=== PATIENT | female | born 1975 | race Caucasian/White ===

== ENCOUNTER 2017-09-01 11:07 | Inpatient (IN) ==
--- NOTE | 2017-09-01 08:59 | Discharge Summary ---
<Laura Dennis - Last Filed: 09/01/17 08:57> Orders not resulted at time of discharge: Pending orders 09/01/17 07:43 XR knee LT limited 1-2V [XR] Routine Hemoglobin and Hematocrit [HEME] Routine Date of Encounter: 09/01/17 - Discharge Diagnosis (1) Arthritis of knee, right Priority: Primary Status: Acute (2) Status post total knee replacement, right Priority: Primary Status: Acute (3) Tobacco use Priority: Secondary Status: Chronic (4) Obesity Priority: Secondary Status: Chronic Qualifiers: Obesity type: due to excess calories Obesity classification: unspecified obesity classification Serious obesity comorbidity presence: without serious comorbidity Qualified Code(s): E66.09 - Other obesity due to excess calories (5) Gout Priority: Secondary Status: Chronic Qualifiers: Gout site: unspecified site Gout etiology: unspecified cause Chronicity: unspecified Qualified Code(s): M10.9 - Gout, unspecified (6) HTN (hypertension) Priority: Secondary Status: Chronic Qualifiers: Hypertension type: essential hypertension Qualified Code(s): I10 - Essential (primary) hypertension (7) DMII (diabetes mellitus, type 2) Priority: Secondary Status: Chronic Qualifiers: Diabetes mellitus visual merchandising coordinator insulin use: unspecified visual merchandising coordinator insulin use status Diabetes mellitus complication status: with unspecified complications Qualified Code(s): E11.8 - Type 2 diabetes mellitus with unspecified complications (8) Seizure Priority: Secondary Status: Chronic - Hospital Course Hospital course: Ms. Santos is a 41 year old female - Time Spent with Patient Total time spent providing and/or coordinating discharge services: - Discharge Medications Home Medications: Allopurinol [Zyloprim] 300 mg PO DAILY 12/20/16 [History] BuPROPion SR (12 HR) [Wellbutrin SR] 150 mg PO DAILY 12/20/16 [History] Calcium Carbonate/Vitamin D3 [Calcium 500-Vit D3 200 Caplet] 1 tab PO DAILY 11/28 [History] Calcium Citrate 950 mg PO DAILY 12/20/16 [History] Cyanocobalamin (Vitamin B-12) [Vitamin B12] 500 mcg PO DAILY 12/20/16 [History] Ergocalciferol (VITAMIN D2) [Vitamin D2] 50,000 unit PO MO 12/20/16 [History] Famotidine [Heartburn Prevention] 20 mg PO BID 12/20/16 [History] Gabapentin [Neurontin] 600 mg PO TID 12/20/16 [History] Loratadine [Allergy Relief] 10 mg PO DAILY 12/20/16 [History] Potassium Chloride [Klor-Con 10] 20 meq PO BID 12/20/16 [History] Pravastatin Sodium [Pravachol] 40 mg PO HS 12/20/16 [History] Vit#98/Ferrous Fum/FA [Kpn Tablet] 1 tab PO DAILY 12/20/16 [ History] SUMAtriptan succinate [Imitrex] 50 mg PO Q2H PRN 12/20/16 [History] Spironolactone [Aldactone] 50 mg PO DAILY 12/20/16 [History] Sucralfate [Carafate] 1 gm PO QIDAC 12/20/16 [History] Tizanidine HCl 4 mg PO TID 12/20/16 [History] Topiramate [Topamax] 50 mg PO HS 12/20/16 [History] Ursodiol 300 mg PO DAILY 12/20/16 [History] Aspirin Enteric Coated [Aspirin EC] 325 mg PO BID #20 tablet. 09/01/17 [Rx] Doxycycline Hyclate 100 mg PO BID 10 Days #20 tablet 09/01/17 [Rx] Ibuprofen [Motrin] 800 mg PO Q8HR PRN 09/01/17 [History] Losartan Potassium [Cozaar] 50 mg PO DAILY 09/01/17 [History] Magnesium Oxide [Magnesium] 500 mg PO DAILY 09/01/17 [History] Meloxicam [Mobic] 15 mg PO DAILY 09/01/17 [History] OxyCODONE Immed Rel [Roxicodone 5 MG] 5 mg PO Q6HR PRN 7 Days #28 tablet [Rx] Riboflavin [Vitamin B-2] 200 mg PO DAILY 09/01/17 [History] Sertraline [Zoloft] 50 mg PO DAILY 09/01/17 [History] clonazePAM [Klonopin] 0.5 mg PO TID 5 Days #15 tablet 09/01/17 [Rx] clonazePAM [Klonopin] 0.5 mg PO TID PRN 09/01/17 [History] Allergies/Adverse Reactions: 3 Allergy/AdvReac Type Severity Reaction Status Date / Time KAROLINE Inhibitors Allergy Unknown See Verified 09/01/17 12:39 Comments Primary care physician: PCP NONE - Patient Status Disposition: Home, Self-Care Condition: Good - Discharge Instructions Follow Up With: NONE,PCP [Primary Care Provider] - <Carmela Kramer - Last Filed: 09/01/17 15:37> Orders not resulted at time of discharge: Pending orders 09/01/17 07:43 XR knee RT limited 1-2V [XR] Routine 09/01/17 11:34 US anesthesia pain block [US] Routine 09/01/17 14:22 Surgical Pathology [PTH] Routine Date of Encounter: 09/01/17 - Hospital Course Hospital course: Ms. Santos is a 41 year old female - Time Spent with Patient Total time spent providing and/or coordinating discharge services: Primary care physician: MELY PATEL Labs on day of discharge: Labs from last 24 hours 09/01/17 09/01/17 09/01/17 15:09 11:34 11:22 Hgb 11.3 L Hct 32.7 L Sodium 139 Potassium 2.9 L POC Glucose 74 <Unruly Boothe - Last Filed: 09/02/17 05:54> Orders not resulted at time of discharge: Pending orders 09/01/17 07:43 XR knee LT limited 1-2V [XR] Routine Hemoglobin and Hematocrit [HEME] Routine 09/01/17 11:22 Potassium Stat Sodium Stat 09/01/17 11:34 US anesthesia pain block [US] Routine Date of Encounter: 09/02/17 Time of Encounter: 05:53 - Discharge Diagnosis (1) Obesity (BMI 30.0-34.9) Priority: Secondary Status: Chronic (2) Complete tear of medial collateral ligament of right knee Priority: Secondary Status: Chronic Comments: Status post reconstruction with allograft in the past Qualifiers: Encounter type: subsequent encounter Qualified Code(s): S83.411D - Sprain of medial collateral ligament of right knee, subsequent encounter (3) Arthritis of knee, right Priority: Primary Status: Chronic (4) Status post total knee replacement, right Priority: Primary Status: Acute (5) Tobacco use Priority: Secondary Status: Chronic (6) Gout Priority: Secondary Status: Chronic Qualifiers: Gout site: unspecified site Gout etiology: unspecified cause Chronicity: unspecified Qualified Code(s): M10.9 - Gout, unspecified (7) HTN (hypertension) Priority: Secondary Status: Chronic Qualifiers: Hypertension type: essential hypertension Qualified Code(s): I10 - Essential (primary) hypertension (8) DMII (diabetes mellitus, type 2) Priority: Secondary Status: Chronic Qualifiers: Diabetes mellitus halfway insulin use: unspecified visual merchandising coordinator insulin use status Diabetes mellitus complication status: with unspecified complications Qualified Code(s): E11.8 - Type 2 diabetes mellitus with unspecified complications (9) Seizure Priority: Secondary Status: Chronic (10) Acute blood loss anemia Priority: Primary Status: Acute - Hospital Course Hospital course: Ms. Santos is a 41 year old female Status post right total knee replacement.The patient had an uneventful postoperative course. They received antibiotics and physical therapy and were discharged in stable condition. There will follow-up in the office in 2 weeks. - Time Spent with Patient Total time spent providing and/or coordinating discharge services: Primary care physician: PCP NONE - Patient Status Functional capacity at discharge: uses cane/walker Overall status at discharge: patient is back to baseline
--- NOTE | 2017-09-01 11:37 | Anesthesia Evaluation PreOp ---
Date of Encounter: 09/01/17 Time of Encounter: 11:35 - Past History Planned Operation: Right Robotic total Knee Arthroplasty Cardiac History: HTN, Hyperlipidemia Pulmonary History: Smoker WAREHOUSE SUPERVISOR 3RD SHIFT History: Seizures (Last one 01/2017), Other (Depression, Migraines) Other Medical History: Diabetes Type II, Other (Gout) Anesthesia History: No Prior Anesthetic Complications, Past Anesthesia (D&C, hernia, Gatric bypass, R. knee arthroscopy) : No Test: Negative (08/26/2017) Alcohol Use: unknown Drug use: none Medications and Allergies Allopurinol [Zyloprim] 300 mg PO DAILY 12/20/16 [History] BuPROPion SR (12 HR) [Wellbutrin SR] 150 mg PO DAILY 12/20/16 [History] Calcium Carbonate/Vitamin D3 [Calcium 500-Vit D3 200 Caplet] 1 tab PO DAILY 11/28 [History] Calcium Citrate 950 mg PO DAILY 12/20/16 [History] Cyanocobalamin (Vitamin B-12) [Vitamin B12] 500 mcg PO DAILY 12/20/16 [History] Ergocalciferol (VITAMIN D2) [Vitamin D2] 50,000 unit PO MO 12/20/16 [History] Famotidine [Heartburn Prevention] 20 mg PO BID 12/20/16 [History] Gabapentin [Neurontin] 600 mg PO TID 12/20/16 [History] Loratadine [Allergy Relief] 10 mg PO DAILY 12/20/16 [History] Potassium Chloride [Klor-Con 10] 20 meq PO BID 12/20/16 [History] Pravastatin Sodium [Pravachol] 40 mg PO HS 12/20/16 [History] Vit#98/Ferrous Fum/FA [Kpn Tablet] 1 tab PO DAILY 12/20/16 [ History] SUMAtriptan succinate [Imitrex] 50 mg PO Q2H PRN 12/20/16 [History] Spironolactone [Aldactone] 50 mg PO DAILY 12/20/16 [History] Sucralfate [Carafate] 1 gm PO QIDAC 12/20/16 [History] Tizanidine HCl 4 mg PO TID 12/20/16 [History] Topiramate [Topamax] 50 mg PO HS 12/20/16 [History] Ursodiol 300 mg PO DAILY 12/20/16 [History] Aspirin Enteric Coated [Aspirin EC] 325 mg PO BID #20 tablet. 09/01/17 [Rx] Losartan Potassium [Cozaar] 50 mg PO DAILY 09/01/17 [History] OxyCODONE Immed Rel [Roxicodone 5 MG] 5 mg PO Q6HR PRN 7 Days #28 tablet [Rx] clonazePAM [Klonopin] 0.5 mg PO TID 5 Days #15 tablet 09/01/17 [Rx] clonazePAM [Klonopin] 0.5 mg PO TID PRN 09/01/17 [History] 3 Allergy/AdvReac Type Severity Reaction Status Date / Time KAROLINE Inhibitors Allergy Unknown See Verified 09/01/17 12:39 Comments - Meds/Allergy Pre-op Review Medications Reviewed: Yes Allergies Reviewed: Yes Beta Blockers on Current Med List: No Anesthesia Results - Labs 09/01/17 11:22 Laboratory Tests 08/26/17 08/26/17 08/26/17 16:08 16:08 16:08 WBC 9.5 Hgb 11.8 Hct 33.1 L MCV 90.7 Plt Count 402 H INR 1.0 Sodium 134 L Potassium 2.7 L Chloride 99 Carbon Dioxide 26 BUN 15 Creatinine 1.00 Serum , Qual 08/26/17 16:08 WBC Hgb Hct MCV Plt Count INR Sodium Potassium Chloride Carbon Dioxide BUN Creatinine Serum , Qual Negative Laboratory Tests 09/01/17 11:22 Potassium 2.9 L - Imaging EKG: report reviewed (SR) Anesthesia Exam O2 Sat Height 1.65 m Height 1.65 m Weight 93.894 kg Weight 93.894 kg O2 Sat by Pulse Oximetry 98 Vital Signs Temp Pulse Resp BP Pulse Ox 98.6 F 78 18 100/67 98 09/01/17 11:38 09/01/17 11:38 09/01/17 11:38 09/01/17 11:38 09/01/17 11:38 NPO (# of Hours): > 8 Hrs Pain Scale: 0 Pain Scale Used: Numeric (1 - 10) - HEENT Pupil (Motor): Pupils equal, EOMI Mallampati: II Teeth: Normal Oral Opening: Greater than 3 - WAREHOUSE SUPERVISOR 3RD SHIFT LOC: Oriented WAREHOUSE SUPERVISOR 3RD SHIFT Motor: Normal RUE, Normal LUE, Normal RLE, Normal LLE, Normal Face WAREHOUSE SUPERVISOR 3RD SHIFT Sensory: Normal: RUE, LUE, RLE, LLE, Face - Cardiac Rhythm: Regular Murmur: None JVD: No Carotid Bruit: No - Pulmonary Breath Sounds: bilateral Clear Respiratory Effort: Symmetrical Anesthesia Assess/Plan ASA Score: 3 Modified Ángel Scale for Level of Consciousness: Cooperative, oriented, and tranquil Anesthetic Plan: General (Will supplement with Potassium if Lab value of 2.7 decreases further.), Regional (Right Fem. Nerve Block) Autologous Blood: Yes Monitoring Plan: Standard Monitors Recovery Plan: PACU
[2017-09-01] MEDS ORDERED: CeFAZolin Syr 2,000MG/20 ML 2,000 MG/20 ML SYRINGE IVPB ONE (11:54)
[2017-09-01] MEDS ORDERED: Albuterol 2.5 MG/3 ML NEBULIZER IH ONE (11:54)
[2017-09-01] MEDS ORDERED: Ringers Solution, Lactated 1,000 ML IVC SCH (12:00)
--- NOTE | 2017-09-01 12:00 | History & Physical Report ---
Date of Encounter: 09/01/17 Time of Encounter: 12:00 24 Hour HP Update - Instructions Instructions: If the History and Physical is less than 30 days old and was completed prior to A.M. admission and or procedure and has NOT been updated on calendar day of procedure please complete this update prior to performing procedure. - Update Patient reports changes in Medical Condition: No Changes in examination, assessment, or condition: No Changes in Medication: No Preop tests/diagnostics Reviewed: Yes Surgery Remains Indicated: Yes Consent for Planned Operative Procedure(s) Verified: Yes - Pre-Operative Checklist Preoperative Checklist Indicated: No Prophylactic Antibiotic Ordered: Yes Is VTE Prophylaxis Indicated?: Yes
[2017-09-01] MEDS ORDERED: Bupivacaine/Clonidine Syringe 1 EACH SYRINGE ONE (12:01)
[2017-09-01] MEDS ORDERED: ROPIVACAINE HCL/PF 0.5% 30 ML VIAL ONE (12:01)
[2017-09-01] MEDS ORDERED: Ethanol\\Acetic Acid\\Na Ace\\Ben 1,000 ML IRRIG.SOLN IR ONE (12:49)
[2017-09-01 12:50] LABS: Potassium 2.9 mEq/L (3.5-5.1)
--- NOTE | 2017-09-01 13:01 | Anesthesia Procedures ---
Date of Encounter: 09/01/17 Time of Encounter: 12:58 Procedures: Anesthesia - Nerve Block Procedure Date: 09/01/17 Time: 12:59 Allergies/Adv Reactions: KAROLINE Inhibitors Allergy (Unknown, Verified 09/01/17 12:39) See Comments Pre-op Diagnosis: right total knee Surgical Procedure: right knee arthroscopy Checklist: Correct Patient Identifier, Correct procedure, History checked Correct side: Right Blood Thinner: No Monitor Applied: EKG, BP, Pulse Oximetry Supplemental Oxygen via Nasal Cannula (L/min): 2 Sedation: Versed (mg): 2 Sedation: Fentanyl (mcg): 100 Indication: Post Op Analgesia Pre-op Neuro Deficits: No Block Type: Femoral, Other (ipack) Catheter placed: No Sterile Technique: Yes Ultrasound used: Yes Anatomy identified: Yes Visual spread of Local: Yes Neuro Stimulation: No Blood on Needle Aspiration: No Smooth Injection of Local: Yes Pain with Injection of Local: No Prep: Chlorhexadine Needle: 22 x 50 mm Stimuplex (femoral), 21 x 100 mm Stimuplex (ipack) Local: 0.25% Bupivicaine w/Clonidine 20 mcg/cc (ipack 20cc), Ropivacaine (0.5% 30cc femoral) Volume (cc): 50 Number of Attempts: 1 Complications: None/effective block
[2017-09-01] MEDS ORDERED: *HR* Promethazine 25 MG/ML VIAL IVP PRN (13:07)
[2017-09-01] MEDS ORDERED: *HR* OxyCODONE Immed Rel 5 MG TABLET PO PRN (13:07)
[2017-09-01] MEDS ORDERED: *HR* HYDROmorphone 2 MG TABLET PO PRN (13:07)
[2017-09-01] MEDS ORDERED: *HR* Labetalol 20 MG/4 ML SYRINGE IVP PRN (13:07)
[2017-09-01] MEDS ORDERED: *HR* Midazolam HCl 2 MG/2 ML VIAL ONE (13:39)
[2017-09-01] MEDS ORDERED: Lidocaine -MPF 2% 2 ML VIAL ONE (13:39)
[2017-09-01] MEDS ORDERED: *HR* FentaNYL (PF) 100 MCG/2 ML VIAL ONE ×3 (13:39→16:10)
[2017-09-01] MEDS ORDERED: Ondansetron 4 MG/2 ML VIAL ONE (13:39)
[2017-09-01] MEDS ORDERED: *HR* PHENYLEPHRINE 1,000 MCG/10 ML SYRINGE IVP ONE (13:39)
[2017-09-01] MEDS ORDERED: *HR* Propofol 200 MG/20 ML VIAL IVP ONE (13:39)
[2017-09-01] MEDS ORDERED: EPHEDrine 50 MG/ML VIAL ONE (13:39)
[2017-09-01] MEDS ORDERED: Acetaminophen IV 1,000 MG/100 ML INFUS..BTL ONE (13:54)
--- NOTE | 2017-09-01 14:19 | Orthopedic Operative Note ---
Date of procedure: 09/01/17 Pre-op diagnosis: Right knee arthritis/ACL insufficiency Post-op diagnosis: same Procedure: Procedure: Right robotic-assisted Total knee replacement Estimated blood loss: 200 cc Hardware: Metal and polyethylene replacement. Maynard Femur: 4 Tibia: 4 TS insert: 13 Patella: 36 Exam Under anesthesia: 3 degree hyperextension 5 degree varus as calculated by the robot full flexion and no instability Procedural Notes: Grade 3 arthritic changes all 3 compartments. Operative procedure: The patient was brought to the operating room and placed on the operating room table. After general anesthesia was administered the operative knee was examined. Findings were noted in the exam under anesthesia. The operative extremity was prepped and draped in sterile surgical fashion. The patient received IV antibiotics prior to skin incision. A standard midline incision was made centered over the patella. The incision was made through the skin and subcutaneous tissue. A medial parapatellar tendon approach was performed. Care was taken to preserve tissue along the medial aspect of the patella. And to protect the patella tendon. The deep MCL was released off the medial tibia. The infra patella fat pad was excised. The patella was everted and cut was made at the level of the insertion of the quadriceps and patella tendon. The patella was sized the guide was seated and the lug holes are drilled. Knee was brought into flexion. Patient noted to have grade 3 arthritic changes all 3 compartments. Steinmann pins were placed in the tibia and the femur for the tibial and femoral arrays respectively. Checkpoints were also placed in the tibia and the femur for calculation purposes. The knee including the femur and the tibial registered. Osteophytes, ACL and PCL were excised at this point. Extension and flexion were assessed with a valgus stress components were adjusted on the computer to balance the knee. Femoral cuts were made first with robotic assistance, these included the anterior cut posterior cuts chamfer cuts. Tibial cut was then performed with robotic assistance as well. Bone fragments were removed, as well as the medial and lateral meniscus. The size 4 femoral guide was seated box cut was made lug holes are drilled. The size 4 tibial tray was seated and prepared with the fin cutter. Trial reduction with the 13 TS Marti revealed extension of 0 degree and 4 degree varus full flexion. No varus valgus instability. Trial reduction revealed excellent patella tracking. All trial components were removed all bony surfaces were irrigated. The Tibia was seated followed by the femur, The Marti size 13 was seated and secured patella. Patient had similar findings for motion and stability. The knee was closed by the PA. The knee was then irrigated out with 2 L of pulse irrigation. The extensor mechanism was closed with #2 FiberWire suture and #2 PDS suture. The subcutaneous tissue was then irrigated and closed deep with #1 PDS suture superficially with 0 PDS suture and skin was closed with zip tie The patient was then placed in a sterile dressing and a postoperative brace extubated and transferred to recovery room in stable condition. Anesthesia: GETA Surgeon: Unruly Boothe Was there an psych assistant present: Yes Nat Instructor: Carmela Kramer Estimated blood loss (cc): 200 Condition: stable Disposition: PACU
[2017-09-01] MEDS ORDERED: Ketorolac 30 MG/ML VIAL ONE (14:52)
[2017-09-01] MEDS ORDERED: *HR* Midazolam HCl 2 MG/2 ML VIAL IVP PRN (15:03)
[2017-09-01 15:24] LABS: Hematocrit 32.7 % (35.3-44.9); Hemoglobin 11.3 g/dL (11.5-15.4)
[2017-09-01] MEDS: *HR* Morphine 2 MG/ML SYRINGE IVP PRN ×3 (15:24→15:52)
[2017-09-01] MEDS: *HR* FentaNYL (PF) 100 MCG/2 ML VIAL IVP PRN ×2 (16:10→16:20)
[2017-09-01] MEDS ORDERED: MOM Conc 10 ML UD.LIQ PO PRN (16:50)
[2017-09-01] MEDS ORDERED: *HR* Dextrose 50 % in Water (Syg) 50 ML SYRINGE IVP PRN (16:50)
[2017-09-01] MEDS ORDERED: D5% in Water 1,000 ML IVC PRN (16:50)
[2017-09-01] MEDS ORDERED: Dextrose Gel 15 GM/37.5 ML TUBE PO PRN ×2 (16:50)
[2017-09-01] MEDS ORDERED: Sennosides 8.6 MG TABLET PO PRN (16:50)
[2017-09-01] MEDS ORDERED: SUMAtriptan succinate 50 MG TABLET PO PRN (16:50)
[2017-09-01] MEDS ORDERED: Temazepam 15 MG CAPSULE PO PRN (16:50)
[2017-09-01] MEDS ORDERED: Naloxone 0.4 MG/ML INJ IVP PRN (16:50)
[2017-09-01] MEDS: Insulin LISPRO 300 UNITS/3 ML VIAL SQ SCH ×2 (17:42→21:08)
[2017-09-01] MEDS: Ringers Solution, Lactated 1,000 ML IVC SCH (17:50)
[2017-09-01] MEDS: *HR* Enoxaparin 30 MG/0.3 ML SYRINGE SQ SCH (17:51)
[2017-09-01] MEDS: tiZANidine 4 MG TABLET PO SCH ×2 (17:52→21:04)
[2017-09-01] MEDS: traMADol 50 MG TABLET PO PRN (17:52)
[2017-09-01] MEDS: Gabapentin 300 MG CAPSULE PO SCH ×2 (17:52→21:07)
[2017-09-01] MEDS: Sucralfate 1 GM TABLET PO SCH ×2 (17:53→21:04)
[2017-09-01] MEDS ORDERED: *HR* Enoxaparin 30 MG/0.3 ML SYRINGE SQ SCH (18:00)
[2017-09-01 18:03] LABS: BUN/Creatinine Ratio 13 (6-26); Blood Urea Nitrogen 12 mg/dL (6-20); Calcium 8.6 mg/dL (8.6-10.3); Carbon Dioxide 29 mEq/L (23-29); Chloride 104 mEq/L (98-107); Glucose 89 mg/dL (70-105); Osmolality,Calculated 283 (280-300); Potassium 2.8 mEq/L (3.5-5.1); Sodium 137 mEq/L (136-145); eGFR For African Americans > 60 (> 60); eGFR For Non-African Americans > 60 (> 60)
--- NOTE | 2017-09-01 19:02 | Anesthesia Evaluation Post Op ---
Date of Encounter: 09/01/17 Time of Encounter: 18:59 - Vital Signs Vital Signs: Vital Signs/O2 Sat, Most Current Temp Pulse Resp BP Pulse Ox 97.5 F L 79 16 94/53 97 09/01/17 17:56 09/01/17 17:56 09/01/17 17:56 09/01/17 17:56 09/01/17 17:56 - Lungs Lungs: Clear Ascult./Percussion - Airway Airway: Non-obstructed - Cardiovascular Regular Rate - Mental Status Mental Status: Alert & Oriented, Answers Appropriately - Pain Pain Scale used: Numeric (1 - 10) (tolerable) - Nausea Vomiting Nausea Vomiting: Not Present - Hydration Hydration: Ice chips - Discharge PostOp Status: Transfer Patient to floor
[2017-09-01] MEDS: *HR* OxyCODONE Immed Rel 5 MG TABLET PO PRN ×2 (19:11→23:15)
[2017-09-01] MEDS: Topiramate 25 MG TABLET PO SCH (21:04)
[2017-09-01] MEDS: CeFAZolin Pre 2,000 MG/100 ML 2,000 MG/100 ML BAG IVPB SCH (21:04)
[2017-09-01] MEDS: Famotidine 20 MG TABLET PO SCH (21:04)
[2017-09-02 01:43] LABS: Hematocrit 27.4 % (35.3-44.9)
[2017-09-02 01:45] LABS: Hemoglobin 9.1 g/dL (11.5-15.4)
[2017-09-02 02:03] LABS: BUN/Creatinine Ratio 15 (6-26); Blood Urea Nitrogen 13 mg/dL (6-20); Calcium 8.1 mg/dL (8.6-10.3); Carbon Dioxide 25 mEq/L (23-29); Chloride 103 mEq/L (98-107); Glucose 104 mg/dL (70-105); Osmolality,Calculated 282 (280-300); Sodium 136 mEq/L (136-145); eGFR For African Americans > 60 (> 60); eGFR For Non-African Americans > 60 (> 60)
[2017-09-02] MEDS: traMADol 50 MG TABLET PO PRN ×2 (03:20→15:52)
[2017-09-02] MEDS: CeFAZolin Pre 2,000 MG/100 ML 2,000 MG/100 ML BAG IVPB SCH (04:34)
[2017-09-02] MEDS: *HR* Enoxaparin 30 MG/0.3 ML SYRINGE SQ SCH ×2 (04:34→17:21)
[2017-09-02] MEDS: Ringers Solution, Lactated 1,000 ML IVC SCH (04:35)
[2017-09-02] MEDS: Ondansetron 4 MG/2 ML VIAL IVP PRN ×2 (04:38→10:57)
[2017-09-02] MEDS: *HR* OxyCODONE Immed Rel 5 MG TABLET PO PRN ×5 (05:14→23:11)
--- NOTE | 2017-09-02 05:55 | Orthopedics Progress Note ---
Date of Encounter: 09/02/17 Time of Encounter: 05:55 - Assessment and Plan (1) Obesity (BMI 30.0-34.9) Current Visit: Yes Status: Chronic (2) Complete tear of medial collateral ligament of right knee Current Visit: Yes Status: Chronic Qualifiers: Encounter type: subsequent encounter Qualified Code(s): S83.411D - Sprain of medial collateral ligament of right knee, subsequent encounter (3) Arthritis of knee, right Current Visit: No Status: Chronic (4) Status post total knee replacement, right Current Visit: No Status: Acute (5) Tobacco use Current Visit: No Status: Chronic (6) Gout Current Visit: No Status: Chronic Qualifiers: Gout site: unspecified site Gout etiology: unspecified cause Chronicity: unspecified Qualified Code(s): M10.9 - Gout, unspecified (7) HTN (hypertension) Current Visit: No Status: Chronic Qualifiers: Hypertension type: essential hypertension Qualified Code(s): I10 - Essential (primary) hypertension (8) DMII (diabetes mellitus, type 2) Current Visit: No Status: Chronic Qualifiers: Diabetes mellitus terminal clerk insulin use: unspecified terminal clerk insulin use status Diabetes mellitus complication status: with unspecified complications Qualified Code(s): E11.8 - Type 2 diabetes mellitus with unspecified complications (9) Seizure Current Visit: No Status: Chronic (10) Acute blood loss anemia Current Visit: Yes Status: Acute Subjective Interval history: Patient was seen this morning doing well without complaints. Afebrile vital signs stable. Operative extremity: Neurovascularly intact Dressing clean dry and intact Calves nontender Assessment and plan: Continue with postoperative care Hemoglobin 9.1 discharged today Objective Vital signs: Vital Signs Temp Pulse Resp BP Pulse Ox 09/02/17 04:53 99.2 F 84 18 106/74 95 09/01/17 23:20 97.6 F 73 16 93/61 97 09/01/17 20:00 98.3 F 72 16 97/68 99 09/01/17 18:47 98.1 F 72 16 103/70 97 09/01/17 17:56 97.5 F L 79 16 94/53 97 09/01/17 17:39 97.5 F L 76 18 96/55 96 09/01/17 16:56 99 09/01/17 16:52 97.8 F 72 16 98/63 100 09/01/17 16:36 98 F 69 14 105/64 99 09/01/17 16:26 98 F 73 14 102/67 100 09/01/17 16:16 76 14 102/68 99 09/01/17 16:06 87 20 118/75 99 09/01/17 15:56 97.3 F L 86 20 113/80 99 09/01/17 15:46 84 16 117/54 100 09/01/17 15:36 87 16 119/91 98 09/01/17 15:26 97.3 F L 84 16 99/71 100 09/01/17 15:16 94 14 122/77 98 09/01/17 15:06 92 14 119/66 93 09/01/17 14:56 97.1 F L 88 14 97/85 96 09/01/17 12:59 77 108/67 99 09/01/17 12:40 79 18 93/64 98 09/01/17 11:56 18 98 09/01/17 11:38 98.6 F 78 18 100/67 98 Intake and Output 09/01/17 09/01/17 09/02/17 15:59 23:59 07:59 Intake Total 20 / 20 400 / 400 1480 / 1480 Output Total 200 / 200 600 / 600 800 / 800 Balance -180 / -180 -200 / -200 680 / 680 Intake: IV Fluids 20 / 20 100 / 100 1000 / 1000 Lactated Ringers 1,000 ML @ 75 1000 / 1000 mls/hr IVC .[id number] [facility] Rx#: [id number] Ancef Premix 2,000 MG/100 ML 2, 100 / 100 000 mg In 100 ml @ 200 mls/hr IVPB Q8H [facility] Rx#:[id number] Ancef Syringe 2,000 MG/20 ML 2, 20 / 20 000 mg In 20 ml @ 200 mls/hr IVPB [facility] Rx#:[id number] Oral 300 / 300 480 / 480 Output: Urine 600 / 600 800 / 800 Estimated Blood Loss 200 / 200 Other: Weight 93.894 kg Blood Glucose* 79 107 - Labs CBC & BMP: 09/02/17 01:23 09/02/17 01:23 Labs: Abnormal lab results Hgb 9.1 g/dL (11.5-15.4) L D 09/02/17 01:23 Hct 27.4 % (35.3-44.9) L 09/02/17 01:23 Potassium 3.0 mEq/L (3.5-5.1) L 09/02/17 01:23 Calcium 8.1 mg/dL (8.6-10.3) L 09/02/17 01:23 - VTE Documentation of Mechanical Device: Venous foot pump, device Consult Discharge Plan - Plan Referrals: NONE,PCP [Primary Care Provider] -
[2017-09-02] MEDS: Insulin LISPRO 300 UNITS/3 ML VIAL SQ SCH ×4 (08:22→22:58)
[2017-09-02] MEDS: RIBOFLAVIN 200 MG PO SCH (08:22)
[2017-09-02] MEDS: BuPROPion SR (12 HR) 150 MG TABLET PO SCH (08:36)
[2017-09-02] MEDS: Multivit/Ca/Min/Fe/FA 1 TAB TABLET PO SCH (08:36)
[2017-09-02] MEDS: Cholecalciferol (D-3) 1,000 UNIT TABLET PO SCH (08:37)
[2017-09-02] MEDS: Famotidine 20 MG TABLET PO SCH ×2 (08:37→20:51)
[2017-09-02] MEDS: Sucralfate 1 GM TABLET PO SCH ×4 (08:37→20:51)
[2017-09-02] MEDS: Cyanocobalamin (B-12) 1,000 MCG TABLET PO SCH (08:37)
[2017-09-02] MEDS: Gabapentin 300 MG CAPSULE PO SCH ×3 (08:37→20:51)
[2017-09-02] MEDS: tiZANidine 4 MG TABLET PO SCH ×3 (08:38→20:51)
[2017-09-02] MEDS: Magnesium Oxide 400 MG TABLET PO SCH (08:38)
[2017-09-02] MEDS: Loratadine 10 MG TABLET PO SCH (08:38)
--- NOTE | 2017-09-02 12:32 | Event Note ---
Date of Encounter: 09/02/17 Time of Encounter: 12:30 PCR - POD#1 - Right TKR robo . Patient seen at bedside. Labs reviewed. Type and cross 2 units, H/H 9.05/10 - transfuse if she becomes symptomatic and H/h drops Pain control: started Lidoderm patch - patient was taking IBU, Mobic and Indomethacin pre-operatively - will not RX any NSAIDS at this time, IBU and Mobic stopped for now. Added Ofirmev. She is on Gabapentin and Zanaflex chronically. Nausea discussed - Zofran. No vomitting. Participating in PT. All questions and concerns addressed. Educated on use of incentive spirometer. Encouraged ambulation and proper hydration. Patient educated on post-operative restrictions and post-operative care. Addressed: Pain. [place] placed Discharge plan:. Home with home health tomorrow.
--- NOTE | 2017-09-02 12:34 | Physician Discharge Referral ---
Home Health/Hosp Referral Info Transfer to: Home Health Attending Provider: Provider in Charge Post Discharge: PCP - Diagnosis (1) Arthritis of knee, right Priority: Primary Status: Chronic (2) Status post total knee replacement, right Priority: Primary Status: Acute (3) Tobacco use Status: Chronic (4) Obesity Status: Chronic (5) Gout Status: Chronic (6) HTN (hypertension) Status: Chronic (7) DMII (diabetes mellitus, type 2) Status: Chronic (8) Seizure Status: Chronic - Respiratory Orders None Smoking Cessation: Smoking cessation has been advised. For more information, call the [place] Tobacco Quit Line at 0-750-ZTFI-NOW. - Activity Activity Orders: Up ad arnulfo, Ambulate, Walker - Services Needed Following services are medically necessary services: Nursing, Home Health Aide, Physical Therapy, Occupational Therapy Home Care Orders: Opsite dressing, leave intact until first post-operative visit. doxycycline discharge script - history of infection~ If dressing becomes >50% saturated, contact office, remove dressing and place appropriate dressing in its place. Do not allow for dressing to get wet. Zipline - LEI - in place, plan to remove at post-operative day #14-16. Total Joint Precautions x 6 weeks Apply cold therapy wrap 3-6x/day for 20 minutes at a time. Encourage ambulation throughout the day Use Incentive spirometer 10x/hour. Elevate affected extremity above heart as tolerated. Brace: Wear knee immobilizer at night x 2 weeks.~ - Transfer Medications Home Medications: Allopurinol [Zyloprim] 300 mg PO DAILY 12/20/16 [History] BuPROPion SR (12 HR) [Wellbutrin SR] 150 mg PO DAILY 12/20/16 [History] Calcium Carbonate/Vitamin D3 [Calcium 500-Vit D3 200 Caplet] 1 tab PO DAILY 11/28 [History] Calcium Citrate 950 mg PO DAILY 12/20/16 [History] Cyanocobalamin (Vitamin B-12) [Vitamin B12] 500 mcg PO DAILY 12/20/16 [History] Ergocalciferol (VITAMIN D2) [Vitamin D2] 50,000 unit PO MO 12/20/16 [History] Famotidine [Heartburn Prevention] 20 mg PO BID 12/20/16 [History] Gabapentin [Neurontin] 600 mg PO TID 12/20/16 [History] Loratadine [Allergy Relief] 10 mg PO DAILY 12/20/16 [History] Potassium Chloride [Klor-Con 10] 20 meq PO BID 12/20/16 [History] Pravastatin Sodium [Pravachol] 40 mg PO HS 12/20/16 [History] Vit#98/Ferrous Fum/FA [Kpn Tablet] 1 tab PO DAILY 12/20/16 [ History] SUMAtriptan succinate [Imitrex] 50 mg PO Q2H PRN 12/20/16 [History] Spironolactone [Aldactone] 50 mg PO DAILY 12/20/16 [History] Sucralfate [Carafate] 1 gm PO QIDAC 12/20/16 [History] Tizanidine HCl 4 mg PO TID 12/20/16 [History] Topiramate [Topamax] 50 mg PO HS 12/20/16 [History] Ursodiol 300 mg PO DAILY 12/20/16 [History] Aspirin Enteric Coated [Aspirin EC] 325 mg PO BID #20 tablet. 09/01/17 [Rx] Doxycycline Hyclate 100 mg PO BID 10 Days #20 tablet 09/01/17 [Rx] Ibuprofen [Motrin] 800 mg PO Q8HR PRN 09/01/17 [History] Losartan Potassium [Cozaar] 50 mg PO DAILY 09/01/17 [History] Magnesium Oxide [Magnesium] 500 mg PO DAILY 09/01/17 [History] Meloxicam [Mobic] 15 mg PO DAILY 09/01/17 [History] OxyCODONE Immed Rel [Roxicodone 5 MG] 5 mg PO Q6HR PRN 7 Days #28 tablet [Rx] Riboflavin [Vitamin B-2] 200 mg PO DAILY 09/01/17 [History] Sertraline [Zoloft] 50 mg PO DAILY 09/01/17 [History] clonazePAM [Klonopin] 0.5 mg PO TID 5 Days #15 tablet 09/01/17 [Rx] clonazePAM [Klonopin] 0.5 mg PO TID PRN 09/01/17 [History] Allergies/Adverse Reactions: 3 Allergy/AdvReac Type Severity Reaction Status Date / Time KAROLINE Inhibitors Allergy Unknown See Verified 09/01/17 12:39 Comments Certification: Further, I certify that my clinical findings support that this patient is homebound (i.e. absences from home require considerable and taxing effort and are for medical reasons or taoism services or infrequently or short duration when for other reasons) because: Homebound Reason: Post-surgery restriction and or conditions limit ability to leave home Attestation: My signature below is to certify that this patient is under my care and that I, or nurse practitioner, or a physician's dyer assistant working with me, has a face-to -face encounter with this patient.
[2017-09-02] MEDS: Acetaminophen IV 1,000 MG/100 ML INFUS..BTL IVPB PRN (18:22)
[2017-09-02] MEDS: Topiramate 25 MG TABLET PO SCH (20:51)
[2017-09-02] MEDS: clonazePAM 0.5 MG TABLET PO PRN (20:51)
[2017-09-03] MEDS: Acetaminophen IV 1,000 MG/100 ML INFUS..BTL IVPB PRN ×3 (01:32→16:53)
[2017-09-03 02:16] LABS: BUN/Creatinine Ratio 11 (6-26); Blood Urea Nitrogen 10 mg/dL (6-20); Calcium 8.6 mg/dL (8.6-10.3); Carbon Dioxide 31 mEq/L (23-29); Chloride 97 mEq/L (98-107); Glucose 59 mg/dL (70-105); Osmolality,Calculated 277 (280-300); Potassium 2.4 mEq/L (3.5-5.1); Sodium 135 mEq/L (136-145); eGFR For African Americans > 60 (> 60); eGFR For Non-African Americans > 60 (> 60)
[2017-09-03 02:26] LABS: Hematocrit 28.7 % (35.3-44.9); Hemoglobin 9.7 g/dL (11.5-15.4)
[2017-09-03] MEDS: traMADol 50 MG TABLET PO PRN (04:46)
[2017-09-03] MEDS: *HR* Enoxaparin 30 MG/0.3 ML SYRINGE SQ SCH ×2 (04:47→16:20)
[2017-09-03] MEDS: *HR* OxyCODONE Immed Rel 5 MG TABLET PO PRN ×3 (04:51→15:00)
--- NOTE | 2017-09-03 08:09 | Orthopedics Progress Note ---
Date of Encounter: 09/03/17 Time of Encounter: 08:08 - Assessment and Plan (1) Obesity (BMI 30.0-34.9) Current Visit: Yes Status: Chronic (2) Complete tear of medial collateral ligament of right knee Current Visit: Yes Status: Chronic Qualifiers: Encounter type: subsequent encounter Qualified Code(s): S83.411D - Sprain of medial collateral ligament of right knee, subsequent encounter (3) Arthritis of knee, right Current Visit: No Status: Chronic (4) Status post total knee replacement, right Current Visit: No Status: Acute (5) Tobacco use Current Visit: No Status: Chronic (6) Gout Current Visit: No Status: Chronic Qualifiers: Gout site: unspecified site Gout etiology: unspecified cause Chronicity: unspecified Qualified Code(s): M10.9 - Gout, unspecified (7) HTN (hypertension) Current Visit: No Status: Chronic Qualifiers: Hypertension type: essential hypertension Qualified Code(s): I10 - Essential (primary) hypertension (8) DMII (diabetes mellitus, type 2) Current Visit: No Status: Chronic Qualifiers: Diabetes mellitus manager long term care insulin use: unspecified manager long term care insulin use status Diabetes mellitus complication status: with unspecified complications Qualified Code(s): E11.8 - Type 2 diabetes mellitus with unspecified complications (9) Seizure Current Visit: No Status: Chronic (10) Acute blood loss anemia Current Visit: Yes Status: Acute Subjective Interval history: Patient was seen this morning doing well without complaints. Afebrile vital signs stable. Operative extremity: Neurovascularly intact Dressing clean dry and intact Calves nontender Assessment and plan: Continue with postoperative care Patient with low potassium this is chronic being treated we will check BMP before discharge. Objective Vital signs: Vital Signs Temp Pulse Resp BP Pulse Ox 09/03/17 07:16 98.2 F 81 19 112/75 96 09/03/17 03:57 99.1 F 82 18 121/80 96 09/02/17 23:45 99.7 F H 76 16 93/63 93 09/02/17 20:12 98.5 F 84 18 104/66 93 09/02/17 16:57 99.0 F 94 16 105/67 96 09/02/17 11:19 99.0 F 80 14 99/63 97 Intake and Output 09/02/17 09/03/17 09/03/17 23:59 07:59 15:59 Intake Total 1390 / 1390 0 / 0 Output Total 1650 / 1650 1100 / 1100 Balance -260 / -260 -1100 / -1100 Intake: IV Fluids 100 / 100 Ofirmev 1,000 mg/100 ml 1,000 100 / 100 mg In 100 ml @ 400 mls/hr IVPB Q6HR PRN Rx#:[id number] Oral 1290 / 1290 0 / 0 Output: Urine 1650 / 1650 1100 / 1100 Other: Meal Lunch Percent of Meal Consumed 50% # Voids 1 1 Blood Glucose* 106 106 - Labs CBC & BMP: 09/03/17 01:29 09/03/17 01:29 Labs: Abnormal lab results Hgb 9.7 g/dL (11.5-15.4) L 09/03/17 01:29 Hct 28.7 % (35.3-44.9) L 09/03/17 01:29 Sodium 135 mEq/L (136-145) L 09/03/17 01:29 Potassium 2.4 mEq/L (3.5-5.1) L* 09/03/17 01:29 Chloride 97 mEq/L (98-107) L 09/03/17 01:29 Carbon Dioxide 31 mEq/L (23-29) H 09/03/17 01:29 Glucose 59 mg/dL (70-105) L 09/03/17 01:29 Calculated Osmolality 277 (280-300) L 09/03/17 01:29 - VTE Documentation of Mechanical Device: Venous foot pump, device Consult Discharge Plan - Plan Additional Instructions: Discharge Instructions: Total Knee Replacement Please call [facility] ([phone]), your Primary Care Physician, or report to the Emergency Room if you have any of the following symptoms: Nausea, vomiting, fever greater that 101.5, swelling, chest pain, shortness of breath, increased pain/redness/drainage/odor for your incision site, numbness/ tingling, or any other concerning symptoms. ACTIVITY:Weight-bearing as tolerated. You may progress off support (crutches or walker) as tolerated. MEDICATIONS: Upon discharge resume your home medications. Take all the medications as prescribed. Take a stool softener if taking narcotic pain medications. Stool softeners are only effective if you drink enough fluids. Drink 6-8 glass of water or fluids a day, unless this is not allowed for another health problem. Despite using stool softeners, if you haven't had a bowel movement in 3 days, please switch to a gentle laxative. Gentle laxatives are sold over the counter. You should have a bowel movement within 24 hours, if not call the office. You will be discharged from the hospital with a prescription for pain medication. You are encouraged to decrease the use of narcotic pain medication as tolerated. Should you require a refill, please call the office. [facility] prescribes narcotic pain medication for only 4-6 weeks after surgery. If you require pain medication beyond this time period, you may be referred to your Primary Care Physician or to the Pain Clinic for further evaluation. Plan ahead for refills on pain medication as many narcotics either need to be picked up at the office or mailed. It is best to call 48-72 hours in advance of needing a prescription refill so you don't run out of medication. To help control the post-operative pain, you may take NSAIDs (Aleve,Advil, Motrin, Ibuprofen, Naprosyn) or Tylenol as prescribed on the bottle in addition to the pain medication. ANTICOAGULATION (blood thinners): Continue your Aspirin, Lovenox or Coumadin as prescribed to help prevent a blood clot in the leg or in the lungs. As long as your incision remains dry and you tolerate the NSAIDs (Aleve, Advil, Motrin, ibuprofen, naprosyn), it is OK to use the NSAIDS while you are taking your anticoagulation medication. Should your incision start to drain, stop the NSAID and contact our office. Common symptoms of blood clot in the legs include: localized pain, swelling, calf tenderness, redness or discoloration of the skin. Blood clot in the lung symptoms include: shortness of breath, rapid pulse, sweating, and chest pain that worsens with deep breathing, coughing up blood, lightheadedness, feelings of anxiety. If you experience any of these symptoms notify your physician immediately, go to the emergency room, or if having trouble breathing, call 911. WOUND CARE: Leave the dressing on for 7 to 10days. You may change the dressing if it becomes saturated greater than 50%. Do not get the dressing wet at anytime. Wash your hands with antibacterial soap, rinse and dry prior to any wound care. If you have chaitanya the visiting nurse or rehab facility can remove the stapes 10-14 days after surgery and place steri-strips across the wound. Leave the steri-strips in place until they fall off on their won. You may let water from the shower run on top of the steri-strips. If you do not have a visiting nurse or rehab facility, you will need to return to the office at 10-14 days for the chaitanya to be removed. If you have itching or redness around the dressing call the office. FOLLOW-UP: Please follow up with your surgeon in the orthopedic clinic in 4 weeks from the day of surgery. If you have chaitanya that need to be removed, you will need to come back to the office in 10-14 days from the day of surgery. Referrals: NONE,PCP [Primary Care Provider] -
[2017-09-03] MEDS: Magnesium Oxide 400 MG TABLET PO SCH (08:19)
[2017-09-03] MEDS: Gabapentin 300 MG CAPSULE PO SCH ×3 (08:20→19:46)
[2017-09-03] MEDS: Loratadine 10 MG TABLET PO SCH (08:20)
[2017-09-03] MEDS: Cholecalciferol (D-3) 1,000 UNIT TABLET PO SCH (08:20)
[2017-09-03] MEDS: tiZANidine 4 MG TABLET PO SCH ×3 (08:20→19:46)
[2017-09-03] MEDS: BuPROPion SR (12 HR) 150 MG TABLET PO SCH (08:25)
[2017-09-03] MEDS: Multivit/Ca/Min/Fe/FA 1 TAB TABLET PO SCH (08:25)
[2017-09-03] MEDS: Famotidine 20 MG TABLET PO SCH ×2 (08:25→19:46)
[2017-09-03] MEDS: Sucralfate 1 GM TABLET PO SCH ×4 (08:25→20:07)
[2017-09-03] MEDS: Insulin LISPRO 300 UNITS/3 ML VIAL SQ SCH ×4 (08:26→21:16)
[2017-09-03] MEDS: RIBOFLAVIN 200 MG PO SCH (08:26)
[2017-09-03] MEDS: Cyanocobalamin (B-12) 1,000 MCG TABLET PO SCH (08:27)
[2017-09-03 11:31] LABS: BUN/Creatinine Ratio 10 (6-26); Blood Urea Nitrogen 9 mg/dL (6-20); Calcium 8.5 mg/dL (8.6-10.3); Carbon Dioxide 29 mEq/L (23-29); Chloride 97 mEq/L (98-107); Glucose 147 mg/dL (70-105); Osmolality,Calculated 279 (280-300); Potassium 2.5 mEq/L (3.5-5.1); Sodium 134 mEq/L (136-145); eGFR For African Americans > 60 (> 60); eGFR For Non-African Americans > 60 (> 60)
--- NOTE | 2017-09-03 14:30 | Internal Medicine Consult Note ---
Date of Encounter: 09/03/17 Time of Encounter: 14:20 - Assessment and plan (1) Hypokalemia Current Visit: Yes Status: Acute Assessment and plan: Acute on chronic hypokalemia, we will increase oral 20 MEQ BID to 40 MEQ BID, given liquid 80 MEQ stat, check mag stat, follow up potassium BID (2) DMII (diabetes mellitus, type 2) Current Visit: Yes Status: Chronic Assessment and plan: resolved after gastric bypass, off medication Qualifiers: Diabetes mellitus fci insulin use: unspecified termite helper insulin use status Diabetes mellitus complication status: with unspecified complications Qualified Code(s): E11.8 - Type 2 diabetes mellitus with unspecified complications (3) Gout Current Visit: Yes Status: Chronic Assessment and plan: continue allopurinol Qualifiers: Gout site: unspecified site Gout etiology: unspecified cause Chronicity: unspecified Qualified Code(s): M10.9 - Gout, unspecified (4) HTN (hypertension) Current Visit: Yes Status: Chronic Assessment and plan: continue losartan Qualifiers: Hypertension type: essential hypertension Qualified Code(s): I10 - Essential (primary) hypertension (5) Seizure Current Visit: Yes Status: Chronic Assessment and plan: patient has hx of seizure, has been stable and off medications - Time Spent With Patient Total time spent is greater than 50% in coordination of care (as documented) at patient's floor/unit and/or counseling patient: Greater than 35 minutes Internal Medicine - CN: HPI - Data of Consult Consult date: 09/03/17 Requesting Physician: Unruly Boothe MD - Consult Narrative Reason for consult: hypokalemia History of present illness: Ms. Santos is a 41 year old female who has a history of hypertension diabetes seizure gout stated post gastric bypass surgery, patient was administered on September 01 after right knee knee surgery. We are consulted today for hypokalemia and failed oral replacement. Patient has history of hypokalemia has been on 20 mEq twice a day replacement and spirolactone 50 mg by mouth once daily. Her K level is from 2.5-3.0. patient denies weakness, no diarrhea, ,no nausea and vomiting. She is able to tolerated orlal meds. I discussed with her abodut oral liquid KCL. she agrees. Patient has DM dbut resolved after gastric bypass. I spone to phamacy to give 80 Meq and increase oral KCL tab to 40 Meq BID. will check mag stat. Patient has hx of seizure, but she is off meds, and stable. Past Med Surg Social Fam HX - Past Medical History Medical history: diabetes, hyperlipidemia, hypertension, migraine, seizures Psychiatric history: anxiety, depression - Past Surgical History Surgical History: herniorrhaphy - Social History Smoking Status: Light tobacco smoker Packs per day: 1/4 Smokeless Tobacco Status: No Alcohol use: rarely Drug use: none - Family History Mother Hx Family Cardiac Disorders: Yes (heart disease) Hx Family Cancer: Yes Hx Family Neurologic Disorders: Yes (CVA) All systems: reviewed and no additional remarkable complaints except as stated - Constitutional Constitutional: as per HPI Additional comments: CON Internal Medicine - CN: Meds Allopurinol [Zyloprim] 300 mg PO DAILY 12/20/16 [History] BuPROPion SR (12 HR) [Wellbutrin SR] 150 mg PO DAILY 12/20/16 [History] Calcium Carbonate/Vitamin D3 [Calcium 500-Vit D3 200 Caplet] 1 tab PO DAILY 11/28 [History] Calcium Citrate 950 mg PO DAILY 12/20/16 [History] Cyanocobalamin (Vitamin B-12) [Vitamin B12] 500 mcg PO DAILY 12/20/16 [History] Ergocalciferol (VITAMIN D2) [Vitamin D2] 50,000 unit PO MO 12/20/16 [History] Famotidine [Heartburn Prevention] 20 mg PO BID 12/20/16 [History] Gabapentin [Neurontin] 600 mg PO TID 12/20/16 [History] Loratadine [Allergy Relief] 10 mg PO DAILY 12/20/16 [History] Potassium Chloride [Klor-Con 10] 20 meq PO BID 12/20/16 [History] Pravastatin Sodium [Pravachol] 40 mg PO HS 12/20/16 [History] Vit#98/Ferrous Fum/FA [Kpn Tablet] 1 tab PO DAILY 12/20/16 [ History] SUMAtriptan succinate [Imitrex] 50 mg PO Q2H PRN 12/20/16 [History] Spironolactone [Aldactone] 50 mg PO DAILY 12/20/16 [History] Sucralfate [Carafate] 1 gm PO QIDAC 12/20/16 [History] Tizanidine HCl 4 mg PO TID 12/20/16 [History] Topiramate [Topamax] 50 mg PO HS 12/20/16 [History] Ursodiol 300 mg PO DAILY 12/20/16 [History] Aspirin Enteric Coated [Aspirin EC] 325 mg PO BID #20 tablet. 09/01/17 [Rx] Doxycycline Hyclate 100 mg PO BID 10 Days #20 tablet 09/01/17 [Rx] Ibuprofen [Motrin] 800 mg PO Q8HR PRN 09/01/17 [History] Losartan Potassium [Cozaar] 50 mg PO DAILY 09/01/17 [History] Magnesium Oxide [Magnesium] 500 mg PO DAILY 09/01/17 [History] Meloxicam [Mobic] 15 mg PO DAILY 09/01/17 [History] OxyCODONE Immed Rel [Roxicodone 5 MG] 5 mg PO Q6HR PRN 7 Days #28 tablet [Rx] Riboflavin [Vitamin B-2] 200 mg PO DAILY 09/01/17 [History] Sertraline [Zoloft] 50 mg PO DAILY 09/01/17 [History] clonazePAM [Klonopin] 0.5 mg PO TID 5 Days #15 tablet 09/01/17 [Rx] clonazePAM [Klonopin] 0.5 mg PO TID PRN 09/01/17 [History] 3 Allergy/AdvReac Type Severity Reaction Status Date / Time KAROLINE Inhibitors Allergy Unknown See Verified 09/01/17 12:39 Comments Internal Medicine - CN: Exam - Constitutional Vitals: Temp Pulse Resp BP Pulse Ox 98.8 F 70 18 100/69 97 09/03/17 11:47 09/03/17 11:47 09/03/17 11:47 09/03/17 11:47 09/03/17 11:47 General appearance IM: Present: A&O X 3, pleasant, answers questions appropriately Exam: CONSTITUTIONAL: Patient appears as an age appropriate female well developed, in no acute distress. EYES Clear sclerae, bilateral pupils are equal, reactive to light and accommodation. Extraocular movements are intact RESPIRATORY: No accessory muscle use, bilateral clear to auscultation, no wheezing, no crackles/rales. CARDIOVASCULAR: Regular heart rate, normal S1 and S2, no murmurs GASTROINTESTINAL: bowel sounds present, soft, no tenderness. No hepatosplenomegaly. No bilateral CVA tenderness MUSCULOSKELETAL: Joints in normal range of motion, no clubbing, no edema, no cyanosis. Bilateral peripheral pulses 2+ LYMPHATIC no lymphadenopathy in neck, groin and axilla bilaterally, no thyromegaly. NEUROLOGIC: CN II to XII are grossly intact, no focal neurological deficit. Deep tendon reflexes 2+ bilaterally. Normal light touch sensation to upper and lower extremity PSYCHIATRIC: Oriented x3, with good insight, mood is euthymic. No hallucinations or delusions. SKIN: Skin warm and dry, no rashes, no open wound. Internal Medicine - CN: Reslt - Labs CBC & Chem 7: 09/03/17 01:29 09/03/17 10:48 Labs: Short CBC 09/03/17 Range/Units 01:29 Hgb 9.7 L (11.5-15.4) g/dL Hct 28.7 L (35.3-44.9) % BMP 09/03/17 09/03/17 01:29 10:48 Sodium 135 L 134 L Potassium 2.4 L* 2.5 L* Chloride 97 L 97 L Carbon Dioxide 31 H 29 BUN 10 9 Creatinine 0.94 0.89 Glucose 59 L 147 H Calcium 8.6 8.5 L - Impressions Impressions Knee X-Ray 09/01/17 07:43 IMPRESSION: Status post right knee arthroplasty without evidence of acute postoperative complication. D/ / 09/01/2017 17:52:47 Hiram Chandler MD / jazlyn Interpreting Provider: Hiram Chandler MD Consult Discharge Plan - Plan Additional Instructions: Discharge Instructions: Total Knee Replacement Please call [facility] ([phone]), your Primary Care Physician, or report to the Emergency Room if you have any of the following symptoms: Nausea, vomiting, fever greater that 101.5, swelling, chest pain, shortness of breath, increased pain/redness/drainage/odor for your incision site, numbness/ tingling, or any other concerning symptoms. ACTIVITY:Weight-bearing as tolerated. You may progress off support (crutches or walker) as tolerated. MEDICATIONS: Upon discharge resume your home medications. Take all the medications as prescribed. Take a stool softener if taking narcotic pain medications. Stool softeners are only effective if you drink enough fluids. Drink 6-8 glass of water or fluids a day, unless this is not allowed for another health problem. Despite using stool softeners, if you haven't had a bowel movement in 3 days, please switch to a gentle laxative. Gentle laxatives are sold over the counter. You should have a bowel movement within 24 hours, if not call the office. You will be discharged from the hospital with a prescription for pain medication. You are encouraged to decrease the use of narcotic pain medication as tolerated. Should you require a refill, please call the office. [facility] prescribes narcotic pain medication for only 4-6 weeks after surgery. If you require pain medication beyond this time period, you may be referred to your Primary Care Physician or to the Pain Clinic for further evaluation. Plan ahead for refills on pain medication as many narcotics either need to be picked up at the office or mailed. It is best to call 48-72 hours in advance of needing a prescription refill so you don't run out of medication. To help control the post-operative pain, you may take NSAIDs (Aleve,Advil, Motrin, Ibuprofen, Naprosyn) or Tylenol as prescribed on the bottle in addition to the pain medication. ANTICOAGULATION (blood thinners): Continue your Aspirin, Lovenox or Coumadin as prescribed to help prevent a blood clot in the leg or in the lungs. As long as your incision remains dry and you tolerate the NSAIDs (Aleve, Advil, Motrin, ibuprofen, naprosyn), it is OK to use the NSAIDS while you are taking your anticoagulation medication. Should your incision start to drain, stop the NSAID and contact our office. Common symptoms of blood clot in the legs include: localized pain, swelling, calf tenderness, redness or discoloration of the skin. Blood clot in the lung symptoms include: shortness of breath, rapid pulse, sweating, and chest pain that worsens with deep breathing, coughing up blood, lightheadedness, feelings of anxiety. If you experience any of these symptoms notify your physician immediately, go to the emergency room, or if having trouble breathing, call 911. WOUND CARE: Leave the dressing on for 7 to 10days. You may change the dressing if it becomes saturated greater than 50%. Do not get the dressing wet at anytime. Wash your hands with antibacterial soap, rinse and dry prior to any wound care. If you have chaitanya the visiting nurse or rehab facility can remove the stapes 10-14 days after surgery and place steri-strips across the wound. Leave the steri-strips in place until they fall off on their won. You may let water from the shower run on top of the steri-strips. If you do not have a visiting nurse or rehab facility, you will need to return to the office at 10-14 days for the chaitanya to be removed. If you have itching or redness around the dressing call the office. FOLLOW-UP: Please follow up with your surgeon in the orthopedic clinic in 4 weeks from the day of surgery. If you have chaitanya that need to be removed, you will need to come back to the office in 10-14 days from the day of surgery. Referrals: NONE,PCP [Primary Care Provider] -
[2017-09-03 14:44] LABS: Magnesium 2.1 mg/dL (1.6-2.6)
[2017-09-03] MEDS: Potassium Chloride Elixir 20 MEQ/15 ML UDC PO ONE ×2 (14:59→15:22)
[2017-09-03] MEDS: Topiramate 25 MG TABLET PO SCH (19:46)
[2017-09-03] MEDS: *HR* OxyCODONE/APAP 5/325 TABLET PO PRN (19:46)
[2017-09-03] MEDS: clonazePAM 0.5 MG TABLET PO PRN (20:07)
--- NOTE | 2017-09-03 20:40 | Electrocardiograph Report ---
[address] [place], [place] [address] Test Date: 2017-09-03 Pat Name: Ritika Santos Department: 114 Room: [facility] Gender: F Yard Manager: JJG : 1975 Requested By: Laura Dennis Order Number: [id number] Reading MD: Brown Alanis Measurements Intervals [place] Rate: 69 P: 40 SC: 161 QRS: 56 QRSD: 96 T: 15 QT: 378 QTc: 396 Interpretive Statements SINUS RHYTHM Electronically Signed On 09-03-2017 20:39:10 EDT by Brown Alanis
[2017-09-04] MEDS: *HR* OxyCODONE Immed Rel 5 MG TABLET PO PRN ×5 (00:48→21:01)
[2017-09-04] MEDS: *HR* OxyCODONE/APAP 5/325 TABLET PO PRN ×4 (02:31→17:08)
[2017-09-04] MEDS: *HR* Enoxaparin 30 MG/0.3 ML SYRINGE SQ SCH ×2 (05:43→17:08)
--- NOTE | 2017-09-04 06:46 | Orthopedics Progress Note ---
Date of Encounter: 09/04/17 Time of Encounter: 06:45 - Assessment and Plan (1) Obesity (BMI 30.0-34.9) Current Visit: Yes Status: Chronic (2) Complete tear of medial collateral ligament of right knee Current Visit: Yes Status: Chronic Qualifiers: Encounter type: subsequent encounter Qualified Code(s): S83.411D - Sprain of medial collateral ligament of right knee, subsequent encounter (3) Arthritis of knee, right Current Visit: No Status: Chronic (4) Status post total knee replacement, right Current Visit: No Status: Acute (5) Tobacco use Current Visit: No Status: Chronic (6) Gout Current Visit: Yes Status: Chronic Qualifiers: Gout site: unspecified site Gout etiology: unspecified cause Chronicity: unspecified Qualified Code(s): M10.9 - Gout, unspecified (7) HTN (hypertension) Current Visit: Yes Status: Chronic Qualifiers: Hypertension type: essential hypertension Qualified Code(s): I10 - Essential (primary) hypertension (8) DMII (diabetes mellitus, type 2) Current Visit: Yes Status: Chronic Qualifiers: Diabetes mellitus usp insulin 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 Afebrile vital signs stable. Operative extremity: Neurovascularly intact Dressing clean dry and intact Calves nontender Assessment and plan: Continue with postoperative care Patient with improvement of potassium 3.3 plan for discharge today Objective Vital signs: Vital Signs Temp Pulse Resp BP Pulse Ox 09/04/17 05:14 104/70 09/04/17 03:19 99.0 F 80 18 96/63 95 09/04/17 00:42 98.5 F 91 17 126/75 09/03/17 18:45 99.7 F H 70 18 102/63 97 09/03/17 16:35 98.4 F 78 16 98/66 97 09/03/17 11:47 98.8 F 70 18 100/69 97 09/03/17 07:16 98.2 F 81 19 112/75 96 Intake and Output 09/03/17 09/03/1709/04/18 15:59 23:59 07:59 Intake Total 100 / 100 550 / 550 200 / 200 Output Total 1000 / 1000 700 / 700 650 / 650 Balance -900 / -900 -150 / -150 -450 / -450 Intake: IV Fluids 100 / 100 100 / 100 Ofirmev 1,000 mg/100 ml 1,000 100 / 100 100 / 100 mg In 100 ml @ 400 mls/hr IVPB Q6HR PRN Rx#:[id number] Oral 450 / 450 200 / 200 Output: Urine 1000 / 1000 700 / 700 650 / 650 Other: Meal Dinner Percent of Meal Consumed 50% # Voids 1 1 Blood Glucose* 121 131 - Labs CBC & BMP: 09/03/17 01:29 09/03/17 18:56 Labs: Abnormal lab results Hgb 9.7 g/dL (11.5-15.4) L 09/03/17 01:29 Hct 28.7 % (35.3-44.9) L 09/03/17 01:29 Sodium 134 mEq/L (136-145) L 09/03/17 10:48 Potassium 3.3 mEq/L (3.5-5.1) L 09/03/17 18:56 Chloride 97 mEq/L (98-107) L 09/03/17 10:48 Glucose 147 mg/dL (70-105) H 09/03/17 10:48 POC Glucose 127 mg/dL (70-99) H 09/03/17 17:25 Calculated Osmolality 279 (280-300) L 09/03/17 10:48 Calcium 8.5 mg/dL (8.6-10.3) L 09/03/17 10:48 - VTE Documentation of Mechanical Device: Venous foot pump, device Consult Discharge Plan - Plan Additional Instructions: Discharge Instructions: Total Knee Replacement Please call [facility] ([phone]), your Primary Care Physician, or report to the Emergency Room if you have any of the following symptoms: Nausea, vomiting, fever greater that 101.5, swelling, chest pain, shortness of breath, increased pain/redness/drainage/odor for your incision site, numbness/ tingling, or any other concerning symptoms. ACTIVITY:Weight-bearing as tolerated. You may progress off support (crutches or walker) as tolerated. MEDICATIONS: Upon discharge resume your home medications. Take all the medications as prescribed. Take a stool softener if taking narcotic pain medications. Stool softeners are only effective if you drink enough fluids. Drink 6-8 glass of water or fluids a day, unless this is not allowed for another health problem. Despite using stool softeners, if you haven't had a bowel movement in 3 days, please switch to a gentle laxative. Gentle laxatives are sold over the counter. You should have a bowel movement within 24 hours, if not call the office. You will be discharged from the hospital with a prescription for pain medication. You are encouraged to decrease the use of narcotic pain medication as tolerated. Should you require a refill, please call the office. [facility] prescribes narcotic pain medication for only 4-6 weeks after surgery. If you require pain medication beyond this time period, you may be referred to your Primary Care Physician or to the Pain Clinic for further evaluation. Plan ahead for refills on pain medication as many narcotics either need to be picked up at the office or mailed. It is best to call 48-72 hours in advance of needing a prescription refill so you don't run out of medication. To help control the post-operative pain, you may take NSAIDs (Aleve,Advil, Motrin, Ibuprofen, Naprosyn) or Tylenol as prescribed on the bottle in addition to the pain medication. ANTICOAGULATION (blood thinners): Continue your Aspirin, Lovenox or Coumadin as prescribed to help prevent a blood clot in the leg or in the lungs. As long as your incision remains dry and you tolerate the NSAIDs (Aleve, Advil, Motrin, ibuprofen, naprosyn), it is OK to use the NSAIDS while you are taking your anticoagulation medication. Should your incision start to drain, stop the NSAID and contact our office. Common symptoms of blood clot in the legs include: localized pain, swelling, calf tenderness, redness or discoloration of the skin. Blood clot in the lung symptoms include: shortness of breath, rapid pulse, sweating, and chest pain that worsens with deep breathing, coughing up blood, lightheadedness, feelings of anxiety. If you experience any of these symptoms notify your physician immediately, go to the emergency room, or if having trouble breathing, call 911. WOUND CARE: Leave the dressing on for 7 to 10days. You may change the dressing if it becomes saturated greater than 50%. Do not get the dressing wet at anytime. Wash your hands with antibacterial soap, rinse and dry prior to any wound care. If you have chaitanya the visiting nurse or rehab facility can remove the stapes 10-14 days after surgery and place steri-strips across the wound. Leave the steri-strips in place until they fall off on their won. You may let water from the shower run on top of the steri-strips. If you do not have a visiting nurse or rehab facility, you will need to return to the office at 10-14 days for the chaitanya to be removed. If you have itching or redness around the dressing call the office. FOLLOW-UP: Please follow up with your surgeon in the orthopedic clinic in 4 weeks from the day of surgery. If you have chaitanya that need to be removed, you will need to come back to the office in 10-14 days from the day of surgery. Referrals: NONE,PCP [Primary Care Provider] -
[2017-09-04 07:15] LABS: BUN/Creatinine Ratio 10 (6-26); Blood Urea Nitrogen 8 mg/dL (6-20); Calcium 8.4 mg/dL (8.6-10.3); Carbon Dioxide 28 mEq/L (23-29); Chloride 97 mEq/L (98-107); Glucose 90 mg/dL (70-105); Osmolality,Calculated 274 (280-300); Potassium 2.9 mEq/L (3.5-5.1); Sodium 133 mEq/L (136-145); eGFR For African Americans > 60 (> 60); eGFR For Non-African Americans > 60 (> 60)
[2017-09-04] MEDS: Insulin LISPRO 300 UNITS/3 ML VIAL SQ SCH ×4 (08:18→21:03)
[2017-09-04] MEDS: BuPROPion SR (12 HR) 150 MG TABLET PO SCH (08:24)
[2017-09-04] MEDS: Sucralfate 1 GM TABLET PO SCH ×4 (08:24→21:00)
[2017-09-04] MEDS: Loratadine 10 MG TABLET PO SCH (08:25)
[2017-09-04] MEDS: tiZANidine 4 MG TABLET PO SCH ×3 (08:25→21:01)
[2017-09-04] MEDS: Gabapentin 300 MG CAPSULE PO SCH ×3 (08:25→21:00)
[2017-09-04] MEDS: Magnesium Oxide 400 MG TABLET PO SCH (08:25)
[2017-09-04] MEDS: Cyanocobalamin (B-12) 1,000 MCG TABLET PO SCH (08:26)
[2017-09-04] MEDS: Famotidine 20 MG TABLET PO SCH ×2 (08:26→21:00)
[2017-09-04] MEDS: Multivit/Ca/Min/Fe/FA 1 TAB TABLET PO SCH (08:26)
[2017-09-04] MEDS: Cholecalciferol (D-3) 1,000 UNIT TABLET PO SCH (08:26)
[2017-09-04] MEDS: clonazePAM 0.5 MG TABLET PO PRN ×2 (08:26→23:10)
[2017-09-04] MEDS: RIBOFLAVIN 200 MG PO SCH (08:28)
--- NOTE | 2017-09-04 12:23 | Event Note ---
Date of Encounter: 09/03/17 Time of Encounter: 16:00 PCR - POD#2- Right TKR robo . Patient seen at bedside. Labs reviewed. 09/02 - Type and cross 2 units, H/H 9.05/10 - transfuse if she becomes symptomatic and H/h drops 09/03 - Critical hypokalemia - hospitalist consulted - improved to 3.3 Pain control: started Lidoderm patch - patient was taking IBU, Mobic and Indomethacin pre-operatively - will not RX any NSAIDS at this time, IBU and Mobic stopped for now. Added Ofirmev. She is on Gabapentin and Zanaflex chronically. Nausea improved Participating in PT. All questions and concerns addressed. Educated on use of incentive spirometer. Encouraged ambulation and proper hydration. Patient educated on post-operative restrictions and post-operative care. Addressed: Pain. Wren placed Discharge plan:. Home with home health once medically stable. seizure precautions in place
--- NOTE | 2017-09-04 12:24 | Event Note ---
Date of Encounter: 09/04/17 Time of Encounter: 12:23 PCR - POD#3- Right TKR robo . Patient seen at bedside. Labs reviewed. 09/02 - Type and cross 2 units, H/H 9.05/10 - transfuse if she becomes symptomatic and H/h drops 09/03 - Critical hypokalemia - hospitalist consulted - improved to 3.3 09/04 - Hypokalemia 2.9 - will defer to hospitalist prior to discharge for planning Pain control: started Lidoderm patch - patient was taking IBU, Mobic and Indomethacin pre-operatively - will not RX any NSAIDS at this time, IBU and Mobic stopped for now. Added Ofirmev. She is on Gabapentin and Zanaflex chronically. Nausea improved Participating in PT. All questions and concerns addressed. Educated on use of incentive spirometer. Encouraged ambulation and proper hydration. Patient educated on post-operative restrictions and post-operative care. Addressed: Pain. Ozzie placed Discharge plan:. Home with home health once medically stable. seizure precautions in place
--- NOTE | 2017-09-04 12:36 | Internal Med Progress Note ---
Date of Encounter: 09/04/17 Time of Encounter: 12:30 - Assessment and plan (1) Hypokalemia Current Visit: Yes Status: Acute Assessment and plan: Raj give potassium 40meq x 3 doses today. Obtain repeat potassium (2) DMII (diabetes mellitus, type 2) Current Visit: Yes Status: Chronic Assessment and plan: Currently off meds /sp gastric bypass Qualifiers: Diabetes mellitus mcc insulin use: unspecified oysterman insulin use status Diabetes mellitus complication status: with unspecified complications Qualified Code(s): E11.8 - Type 2 diabetes mellitus with unspecified complications (3) HTN (hypertension) Current Visit: Yes Status: Chronic Assessment and plan: continue losartan and spironolactone Qualifiers: Hypertension type: essential hypertension Qualified Code(s): I10 - Essential (primary) hypertension (4) Complete tear of medial collateral ligament of right knee Current Visit: Yes Status: Chronic Assessment and plan: s/p right total knee replacement. stable. Ortho following Qualifiers: Encounter type: subsequent encounter Qualified Code(s): S83.411D - Sprain of medial collateral ligament of right knee, subsequent encounter - Time Spent With Patient Total time spent is greater than 50% in coordination of care (as documented) at patient's floor/unit and/or counseling patient: - Subjective Interval history: No acute events overnight - Constitutional Vitals: Temp Pulse Resp BP Pulse Ox 98.5 F 91 16 112/68 98 09/04/17 10:02 09/04/17 10:02 09/04/17 10:02 09/04/17 10:02 09/04/17 10:02 General appearance: Present: A&O X 3, pleasant, answers questions appropriately - Head Head exam: Present: atraumatic, normocephalic - Eye Eye exam: Present: PERRL, conjuntiva pink, sclera anicteric Pupils: Present: PERRL - Neck Neck exam general surgery: Present: supple, trachea midline. Absent: lymphadenopathy - Respiratory Respiratory exam: Present: CTAB. Absent: accessory muscle use, rales, rhonchi, wheezes - Cardiovascular Cardiovascular exam: Present: RRR, +S1, +S2. Absent: diastolic murmur, gallop, rubs, systolic murmur - GI/Abdominal GI/Abdominal exam: Present: normal bowel sounds, soft, no peritoneal signs. Absent: distended, tenderness - Extremities Exam Extremities exam: Present: warm, radial pulses palpable and symmetrical. Absent : calf tenderness, cyanotic, pedal edema - Neurological Exam Neurological exam: Present: CN II-XII intact, oriented X3, no focal deficits. Absent: pronater drift, facial droop, speech deficit - Skin Skin exam: Present: dry, intact Internal Medicine: Result - Labs CBC & Chem 7: 09/03/17 01:29 09/04/17 06:29 Labs: BMP 09/03/17 09/03/17 09/03/17 10:48 15:59 18:56 Sodium 134 L Potassium 2.5 L* 2.7 L 3.3 L Chloride 97 L Carbon Dioxide 29 BUN 9 Creatinine 0.89 Glucose 147 H Calcium 8.5 L 09/04/17 06:29 Sodium 133 L Potassium 2.9 L Chloride 97 L Carbon Dioxide 28 BUN 8 Creatinine 0.82 Glucose 90 Calcium 8.4 L - VTE Documentation of Mechanical Device: Venous foot pump, device Consult Discharge Plan - Plan Additional Instructions: Discharge Instructions: Total Knee Replacement Please call [facility] ([phone]), your Primary Care Physician, or report to the Emergency Room if you have any of the following symptoms: Nausea, vomiting, fever greater that 101.5, swelling, chest pain, shortness of breath, increased pain/redness/drainage/odor for your incision site, numbness/ tingling, or any other concerning symptoms. ACTIVITY:Weight-bearing as tolerated. You may progress off support (crutches or walker) as tolerated. MEDICATIONS: Upon discharge resume your home medications. Take all the medications as prescribed. Take a stool softener if taking narcotic pain medications. Stool softeners are only effective if you drink enough fluids. Drink 6-8 glass of water or fluids a day, unless this is not allowed for another health problem. Despite using stool softeners, if you haven't had a bowel movement in 3 days, please switch to a gentle laxative. Gentle laxatives are sold over the counter. You should have a bowel movement within 24 hours, if not call the office. You will be discharged from the hospital with a prescription for pain medication. You are encouraged to decrease the use of narcotic pain medication as tolerated. Should you require a refill, please call the office. [facility] prescribes narcotic pain medication for only 4-6 weeks after surgery. If you require pain medication beyond this time period, you may be referred to your Primary Care Physician or to the Pain Clinic for further evaluation. Plan ahead for refills on pain medication as many narcotics either need to be picked up at the office or mailed. It is best to call 48-72 hours in advance of needing a prescription refill so you don't run out of medication. To help control the post-operative pain, you may take NSAIDs (Aleve,Advil, Motrin, Ibuprofen, Naprosyn) or Tylenol as prescribed on the bottle in addition to the pain medication. ANTICOAGULATION (blood thinners): Continue your Aspirin, Lovenox or Coumadin as prescribed to help prevent a blood clot in the leg or in the lungs. As long as your incision remains dry and you tolerate the NSAIDs (Aleve, Advil, Motrin, ibuprofen, naprosyn), it is OK to use the NSAIDS while you are taking your anticoagulation medication. Should your incision start to drain, stop the NSAID and contact our office. Common symptoms of blood clot in the legs include: localized pain, swelling, calf tenderness, redness or discoloration of the skin. Blood clot in the lung symptoms include: shortness of breath, rapid pulse, sweating, and chest pain that worsens with deep breathing, coughing up blood, lightheadedness, feelings of anxiety. If you experience any of these symptoms notify your physician immediately, go to the emergency room, or if having trouble breathing, call 911. WOUND CARE: Leave the dressing on for 7 to 10days. You may change the dressing if it becomes saturated greater than 50%. Do not get the dressing wet at anytime. Wash your hands with antibacterial soap, rinse and dry prior to any wound care. If you have chaitanya the visiting nurse or rehab facility can remove the stapes 10-14 days after surgery [address] steri-strips across the wound. Leave the steri-strips in place until they fall off on their won. You may let water from the shower run on top of the steri-strips. If you do not have a visiting nurse or rehab facility, you will need to return to the office at 10-14 days for the chaitanya to be removed. If you have itching or redness around the dressing call the office. FOLLOW-UP: Please follow up with your surgeon in the orthopedic clinic in 4 weeks from the day of surgery. If you have chaitanya that need to be removed, you will need to come back to the office in 10-14 days from the day of surgery. Referrals: NONE,PCP [Primary Care Provider] -
[2017-09-04] MEDS: Potassium Chloride Elixir 20 MEQ/15 ML UDC PO SCH ×3 (14:07→21:11)
[2017-09-04] MEDS: Topiramate 25 MG TABLET PO SCH (21:00)
[2017-09-04] MEDS: traMADol 50 MG TABLET PO PRN (23:10)
[2017-09-05] MEDS: *HR* OxyCODONE Immed Rel 5 MG TABLET PO PRN ×2 (02:38→11:01)
[2017-09-05 02:50] LABS: BUN/Creatinine Ratio 13 (6-26); Blood Urea Nitrogen 11 mg/dL (6-20); Calcium 8.6 mg/dL (8.6-10.3); Carbon Dioxide 25 mEq/L (23-29); Chloride 105 mEq/L (98-107); Glucose 90 mg/dL (70-105); Osmolality,Calculated 283 (280-300); Potassium 3.7 mEq/L (3.5-5.1); Sodium 137 mEq/L (136-145); eGFR For African Americans > 60 (> 60); eGFR For Non-African Americans > 60 (> 60)
[2017-09-05] MEDS: *HR* Enoxaparin 30 MG/0.3 ML SYRINGE SQ SCH (06:08)
[2017-09-05] MEDS: traMADol 50 MG TABLET PO PRN (06:08)
--- NOTE | 2017-09-05 06:21 | Orthopedics Progress Note ---
Date of Encounter: 09/05/17 Time of Encounter: 06:21 - Assessment and Plan (1) Obesity (BMI 30.0-34.9) Current Visit: Yes Status: Chronic (2) Complete tear of medial collateral ligament of right knee Current Visit: Yes Status: Chronic Qualifiers: Encounter type: subsequent encounter Qualified Code(s): S83.411D - Sprain of medial collateral ligament of right knee, subsequent encounter (3) Arthritis of knee, right Current Visit: No Status: Chronic (4) Status post total knee replacement, right Current Visit: No Status: Acute (5) Tobacco use Current Visit: No Status: Chronic (6) Gout Current Visit: Yes Status: Chronic Qualifiers: Gout site: unspecified site Gout etiology: unspecified cause Chronicity: unspecified Qualified Code(s): M10.9 - Gout, unspecified (7) HTN (hypertension) Current Visit: Yes Status: Chronic Qualifiers: Hypertension type: essential hypertension Qualified Code(s): I10 - Essential (primary) hypertension (8) DMII (diabetes mellitus, type 2) Current Visit: Yes Status: Chronic Qualifiers: Diabetes mellitus mcc insulin use: unspecified intermodal customer service insulin use status Diabetes mellitus complication status: with unspecified complications Qualified Code(s): E11.8 - Type 2 diabetes mellitus with unspecified complications (9) Seizure Current Visit: Yes Status: Chronic (10) Acute blood loss anemia Current Visit: Yes Status: Acute Subjective Interval history: Patient was seen this morning doing well without complaints. Afebrile vital signs stable. Operative extremity: Neurovascularly intact Dressing clean dry and intact Calves nontender Assessment and plan: Continue with postoperative care Patient with improvement of potassium 3.7 plan for discharge today Objective Vital signs: Vital Signs Temp Pulse Resp BP Pulse Ox 09/05/17 04:03 97.6 F 80 18 122/72 97 09/05/17 00:15 98.1 F 84 16 118/72 98 09/04/17 18:36 98.1 F 73 16 100/60 98 09/04/17 14:00 98.8 F 97 16 118/76 99 09/04/17 10:02 98.5 F 91 16 112/68 98 09/04/17 06:38 98.8 F 86 18 107/68 96 Intake and Output 05/24/18 05/24/18 05/25/18 15:59 23:59 07:59 Intake Total 1000 / 1000 400 / 400 Balance 1000 / 1000 400 / 400 Intake: Oral 1000 / 1000 400 / 400 Other: # Voids 1 1 Blood Glucose* 113 94 - Labs CBC & BMP: 09/03/17 01:29 09/05/17 01:18 Labs: Abnormal lab results Hgb 9.7 g/dL (11.5-15.4) L 09/03/17 01:29 Hct 28.7 % (35.3-44.9) L 09/03/17 01:29 POC Glucose 113 mg/dL (70-99) H 09/04/17 11:47 - VTE Documentation of Mechanical Device: Venous foot pump, device Consult Discharge Plan - Plan Additional Instructions: Discharge Instructions: Total Knee Replacement Please call [facility] ([phone]), your Primary Care Physician, or report to the Emergency Room if you have any of the following symptoms: Nausea, vomiting, fever greater that 101.5, swelling, chest pain, shortness of breath, increased pain/redness/drainage/odor for your incision site, numbness/ tingling, or any other concerning symptoms. ACTIVITY:Weight-bearing as tolerated. You may progress off support (crutches or walker) as tolerated. MEDICATIONS: Upon discharge resume your home medications. Take all the medications as prescribed. Take a stool softener if taking narcotic pain medications. Stool softeners are only effective if you drink enough fluids. Drink 6-8 glass of water or fluids a day, unless this is not allowed for another health problem. Despite using stool softeners, if you haven't had a bowel movement in 3 days, please switch to a gentle laxative. Gentle laxatives are sold over the counter. You should have a bowel movement within 24 hours, if not call the office. You will be discharged from the hospital with a prescription for pain medication. You are encouraged to decrease the use of narcotic pain medication as tolerated. Should you require a refill, please call the office. [facility] prescribes narcotic pain medication for only 4-6 weeks after surgery. If you require pain medication beyond this time period, you may be referred to your Primary Care Physician or to the Pain Clinic for further evaluation. Plan ahead for refills on pain medication as many narcotics either need to be picked up at the office or mailed. It is best to call 48-72 hours in advance of needing a prescription refill so you don't run out of medication. To help control the post-operative pain, you may take NSAIDs (Aleve,Advil, Motrin, Ibuprofen, Naprosyn) or Tylenol as prescribed on the bottle in addition to the pain medication. ANTICOAGULATION (blood thinners): Continue your Aspirin, Lovenox or Coumadin as prescribed to help prevent a blood clot in the leg or in the lungs. As long as your incision remains dry and you tolerate the NSAIDs (Aleve, Advil, Motrin, ibuprofen, naprosyn), it is OK to use the NSAIDS while you are taking your anticoagulation medication. Should your incision start to drain, stop the NSAID and contact our office. Common symptoms of blood clot in the legs include: localized pain, swelling, calf tenderness, redness or discoloration of the skin. Blood clot in the lung symptoms include: shortness of breath, rapid pulse, sweating, and chest pain that worsens with deep breathing, coughing up blood, lightheadedness, feelings of anxiety. If you experience any of these symptoms notify your physician immediately, go to the emergency room, or if having trouble breathing, call 911. WOUND CARE: Leave the dressing on for 7 to 10days. You may change the dressing if it becomes saturated greater than 50%. Do not get the dressing wet at anytime. Wash your hands with antibacterial soap, rinse and dry prior to any wound care. If you have chaitanya the visiting nurse or rehab facility can remove the stapes 10-14 days after surgery [address] steri-strips across the wound. Leave the steri-strips in place until they fall off on their won. You may let water from the shower run on top of the steri-strips. If you do not have a visiting nurse or rehab facility, you will need to return to the office at 10-14 days for the chaitanya to be removed. If you have itching or redness around the dressing call the office. FOLLOW-UP: Please follow up with your surgeon in the orthopedic clinic in 4 weeks from the day of surgery. If you have chaitanya that need to be removed, you will need to come back to the office in 10-14 days from the day of surgery. Referrals: NONE,PCP [Primary Care Provider] -
[2017-09-05] MEDS: Insulin LISPRO 300 UNITS/3 ML VIAL SQ SCH ×2 (08:19→12:30)
[2017-09-05] MEDS: Cyanocobalamin (B-12) 1,000 MCG TABLET PO SCH (08:26)
[2017-09-05] MEDS: *HR* OxyCODONE/APAP 5/325 TABLET PO PRN ×2 (08:27→14:05)
[2017-09-05] MEDS: Loratadine 10 MG TABLET PO SCH (08:27)
[2017-09-05] MEDS: Multivit/Ca/Min/Fe/FA 1 TAB TABLET PO SCH (08:27)
[2017-09-05] MEDS: clonazePAM 0.5 MG TABLET PO PRN (08:27)
[2017-09-05] MEDS: BuPROPion SR (12 HR) 150 MG TABLET PO SCH (08:27)
[2017-09-05] MEDS: Gabapentin 300 MG CAPSULE PO SCH ×2 (08:27→14:05)
[2017-09-05] MEDS: Famotidine 20 MG TABLET PO SCH (08:27)
[2017-09-05] MEDS: RIBOFLAVIN 200 MG PO SCH (08:28)
[2017-09-05] MEDS: tiZANidine 4 MG TABLET PO SCH ×2 (08:28→14:05)
[2017-09-05] MEDS: Cholecalciferol (D-3) 1,000 UNIT TABLET PO SCH (08:28)
[2017-09-05] MEDS: Magnesium Oxide 400 MG TABLET PO SCH (08:28)
[2017-09-05] MEDS: Sucralfate 1 GM TABLET PO SCH ×2 (08:28→11:02)
[2017-09-05 11:00] VITALS: BP 126/84
--- NOTE | 2017-09-05 11:57 | Event Note ---
Date of Encounter: 09/05/17 Time of Encounter: 11:57 Hypokalmia hospitalist following; K+ 3.3 this morning Plan to D/C Friday once medically stable. Will continue potassium at home per hosp. recommendations Lorna is making PCP follow for Friday for hypokalemia
--- NOTE | 2017-09-05 13:30 | Internal Med Progress Note ---
Date of Encounter: 09/05/17 Time of Encounter: 13:00 - Assessment and plan (1) Hypokalemia Status: Acute Assessment and plan: Recieved potassium 40meq x 3 doses in last 24hrs. Potassium levels came up. Patient can be discharged on potassium supplementation (2) DMII (diabetes mellitus, type 2) Status: Chronic Assessment and plan: Currently off meds /sp gastric bypass Qualifiers: Diabetes mellitus care home insulin use: unspecified terminal manager insulin use status Diabetes mellitus complication status: with unspecified complications Qualified Code(s): E11.8 - Type 2 diabetes mellitus with unspecified complications (3) HTN (hypertension) Status: Chronic Assessment and plan: continue losartan and spironolactone Qualifiers: Hypertension type: essential hypertension Qualified Code(s): I10 - Essential (primary) hypertension (4) Complete tear of medial collateral ligament of right knee Status: Chronic Assessment and plan: s/p right total knee replacement. stable. Ortho following Qualifiers: Encounter type: subsequent encounter Qualified Code(s): S83.411D - Sprain of medial collateral ligament of right knee, subsequent encounter - Time Spent With Patient Total time spent is greater than 50% in coordination of care (as documented) at patient's floor/unit and/or counseling patient: - Subjective Interval history: No acute events overnight - Constitutional Vitals: Temp Pulse Resp BP Pulse Ox 97.9 F 84 16 126/84 96 09/05/17 09:51 09/05/17 09:51 09/05/17 09:51 09/05/17 09:51 09/05/17 09:51 General appearance: Present: A&O X 3, pleasant, answers questions appropriately - Head Head exam: Present: atraumatic, normocephalic - Eye Eye exam: Present: PERRL, conjuntiva pink, sclera anicteric Pupils: Present: PERRL - Neck Neck exam general surgery: Present: supple, trachea midline. Absent: lymphadenopathy - Respiratory Respiratory exam: Present: CTAB. Absent: accessory muscle use, rales, rhonchi, wheezes - Cardiovascular Cardiovascular exam: Present: RRR, +S1, +S2. Absent: diastolic murmur, gallop, rubs, systolic murmur - GI/Abdominal GI/Abdominal exam: Present: normal bowel sounds, soft, no peritoneal signs. Absent: distended, tenderness - Extremities Exam Extremities exam: Present: warm, radial pulses palpable and symmetrical. Absent : calf tenderness, cyanotic, pedal edema - Neurological Exam Neurological exam: Present: CN II-XII intact, oriented X3, no focal deficits. Absent: pronater drift, facial droop, speech deficit - Skin Skin exam: Present: dry, intact Internal Medicine: Result - Labs CBC & Chem 7: 09/03/17 01:29 09/05/17 09:53 Labs: BMP 09/04/17 09/05/17 09/05/17 21:39 01:18 09:53 Sodium 137 Potassium 4.0 D 3.7 3.3 L Chloride 105 Carbon Dioxide 25 BUN 11 Creatinine 0.83 Glucose 90 Calcium 8.6 - VTE Documentation of Mechanical Device: Venous foot pump, device Consult Discharge Plan - Plan Additional Instructions: Discharge Instructions: Total Knee Replacement Please call [facility] ([phone]), your Primary Care Physician, or report to the Emergency Room if you have any of the following symptoms: Nausea, vomiting, fever greater that 101.5, swelling, chest pain, shortness of breath, increased pain/redness/drainage/odor for your incision site, numbness/ tingling, or any other concerning symptoms. ACTIVITY:Weight-bearing as tolerated. You may progress off support (crutches or walker) as tolerated. MEDICATIONS: Upon discharge resume your home medications. Take all the medications as prescribed. Take a stool softener if taking narcotic pain medications. Stool softeners are only effective if you drink enough fluids. Drink 6-8 glass of water or fluids a day, unless this is not allowed for another health problem. Despite using stool softeners, if you haven't had a bowel movement in 3 days, please switch to a gentle laxative. Gentle laxatives are sold over the counter. You should have a bowel movement within 24 hours, if not call the office. You will be discharged from the hospital with a prescription for pain medication. You are encouraged to decrease the use of narcotic pain medication as tolerated. Should you require a refill, please call the office. [facility] prescribes narcotic pain medication for only 4-6 weeks after surgery. If you require pain medication beyond this time period, you may be referred to your Primary Care Physician or to the Pain Clinic for further evaluation. Plan ahead for refills on pain medication as many narcotics either need to be picked up at the office or mailed. It is best to call 48-72 hours in advance of needing a prescription refill so you don't run out of medication. To help control the post-operative pain, you may take NSAIDs (Aleve,Advil, Motrin, Ibuprofen, Naprosyn) or Tylenol as prescribed on the bottle in addition to the pain medication. ANTICOAGULATION (blood thinners): Continue your Aspirin, Lovenox or Coumadin as prescribed to help prevent a blood clot in the leg or in the lungs. As long as your incision remains dry and you tolerate the NSAIDs (Aleve, Advil, Motrin, ibuprofen, naprosyn), it is OK to use the NSAIDS while you are taking your anticoagulation medication. Should your incision start to drain, stop the NSAID and contact our office. Common symptoms of blood clot in the legs include: localized pain, swelling, calf tenderness, redness or discoloration of the skin. Blood clot in the lung symptoms include: shortness of breath, rapid pulse, sweating, and chest pain that worsens with deep breathing, coughing up blood, lightheadedness, feelings of anxiety. If you experience any of these symptoms notify your physician immediately, go to the emergency room, or if having trouble breathing, call 911. WOUND CARE: Leave the dressing on for 7 to 10days. You may change the dressing if it becomes saturated greater than 50%. Do not get the dressing wet at anytime. Wash your hands with antibacterial soap, rinse and dry prior to any wound care. If you have chaitanya the visiting nurse or rehab facility can remove the stapes 10-14 days after surgery and place steri-strips across the wound. Leave the steri-strips in place until they fall off on their won. You may let water from the shower run on top of the steri-strips. If you do not have a visiting nurse or rehab facility, you will need to return to the office at 10-14 days for the chaitanya to be removed. If you have itching or redness around the dressing call the office. FOLLOW-UP: Please follow up with your surgeon in the orthopedic clinic in 4 weeks from the day of surgery. If you have chaitanya that need to be removed, you will need to come back to the office in 10-14 days from the day of surgery. Referrals: Unruly Boothe MD [Partnered Physician] - 10/01/17 4:40 pm Laura Dennis PAC [Physician Band Attacher] - 09/11/17 9:00 am NONE,PCP [Non-Partnered Physician] - 09/10/17 9:15 am
== END 2017-09-05 14:39 | disposition home or self-care (01) | DRG 302 ==
LOC: SAMDAY 11:07 → 3NENU 16:48
PROVIDERS: ADMIT Orthopaedic Surgery; ATTEND Orthopaedic Surgery